=== PATIENT | female | born 1945 | race Caucasian/White ===

== ENCOUNTER → 2021-02-14 10:44 | Outpatient (BNVA) | payer MEDICARE, SELFPAY | PROVIDERS: PCP Family Medicine; Visit Provider Student in an Organized Health Care Education/Training Program | DX: R76.8 Other specified abnormal immunological findings in serum (principal) | CPT/HCPCS: 99212 ==

== ENCOUNTER 2021-05-05 08:51 | Outpatient (REF) | payer MEDICARE, SELFPAY ==
[2021-05-05 09:49] LABS: C Reactive Protein 0.06 mg/dL (< or = 0.50)
[2021-05-05 10:08] LABS: Erythrocyte Sedimentation Rate 4 MM/HR (0-20)
[2021-05-05 10:29] LABS: Syphilis Screen Nonreactive (Nonreactive)
[2021-05-05 11:04] LABS: Glucose Urine UA NEG (NEG); Leukocyte Esterase Urine 1+ (NEG); Nitrite Urine NEG (NEG); Urine Blood NEG (NEG); Urine Ketones NEG (NEG); Urine Protein NEG (NEG-TRACE)
[2021-05-05 11:19] LABS: Appearance Urine CLEAR; Color Urine YELLOW
[2021-05-05 11:57] LABS: Amorphous Sediment Urine TRACE /LPF; RBC Urine 0-2 /HPF (0)
[2021-05-06 08:52] LABS: Lyme Abs Screen <0.90 index
[2021-05-06 14:07] LABS: Anti DNA DS Antibody 2 IU/mL; Antibody to SS-A Antigen <1.0 NEG AI (<1.0 NEG); Antibody to SS-B Antigen <1.0 NEG AI (<1.0 NEG); Cardiolipin IgG Ab <2.0 GPL-U/mL; Cardiolipin IgM Ab <2.0 MPL-U/mL; SM/Ribonucleoprotein Ab <1.0 NEG AI (<1.0 NEG); Smith Protein <1.0 NEG AI (<1.0 NEG)
[2021-05-06 17:23] LABS: Beta-2 Microglobulin, Serum 2.05 mg/L (< OR = 2.51)
[2021-05-08 10:37] LABS: Complement C3 116 mg/dL (83-193)
[2021-05-08 14:42] LABS: PTT (LAC) Screen 36 sec (< OR = 40)
[2021-05-12 13:26] LABS: HLA B27 Negative (Negative)
== END 2021-05-05 08:52 | disposition home or self-care (01) ==
LOC: HO.LAB 08:51
PROVIDERS: PCP Family Medicine; Visit Provider Student in an Organized Health Care Education/Training Program
DX: R76.8 Other specified abnormal immunological findings in serum (principal); H20.9 Unspecified iridocyclitis
CPT/HCPCS: 36415; 81001; 82232; 85597; 85613; 85652; 85730; 86140; 86147; 86160; 86225; 86235; 86617; 86618; 86780; 86812

== ENCOUNTER 2021-05-12 07:37 | Outpatient (REF) | payer MEDICARE, SELFPAY ==
--- NOTE | ~2021-05-12 | XR_ITS ---
EXAMINATION: XR CHEST CLINICAL INFORMATION: Unspecified iridiocytosis. COMPARISON: None TECHNIQUE: Frontal and lateral views of the chest were obtained. FINDINGS: The heart, great vessels, pulmonary vasculature and mediastinum are normal. There is a full inspiration. The lungs show no focal infiltrate, effusion or pneumothorax. There is mild biapical pleural thickening, right greater than left. On the frontal view, there appears to be a hiatus hernia. There is no acute osseous abnormality. XR/XR chest 2V IMPRESSION: No active cardiopulmonary disease.
--- NOTE | ~2021-05-12 | XR_ITS ---
EXAMINATION: XR PELVIS CLINICAL INFORMATION: Iridiocytosis. COMPARISON: None TECHNIQUE: AP view of the pelvis. FINDINGS: Bony alignment and mineralization are normal. The bilateral acetabular joint spaces are well-maintained. There are tiny peripheral osteophytes of the acetabular roofs. The femoral heads appear smooth. There is no fracture or dislocation. The sacroiliac joints are symmetric and unremarkable. There are pelvic phleboliths. There are incompletely characterized degenerative changes of the lower lumbar spine. 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 No fracture or dislocation is seen. The sacroiliac joints appear symmetric.
[2021-05-12 08:48] LABS: MANUAL DIFF FLAG NO
[2021-05-12 08:52] LABS: Basophils Absolute Auto 0.1 X10*3/uL (0.0-0.2); Basophils Percent Auto 1.3 % (0-2); Eosinophils Absolute Auto 0.1 X10*3/uL (0.0-0.4); Eosinophils Percent Auto 2.8 % (0-4); Hematocrit 41.7 % (37-47); Hemoglobin 13.1 g/dl (12.0-16.0); Imm Gran Abs Auto 0.02 X10*3/uL (0.00-0.03); Imm Gran Pct Auto 0.5 % (0.0-0.4); Lymphocytes Absolute Auto 1.8 X10*3/uL (1.2-4.9); Lymphocytes Percent Auto 47.2 % (20-40); Mean Corpuscular HGB Conc 31.4 g/dl (31.0-35.0); Mean Corpuscular Hemoglobin 28.9 pg (27.0-33.0); Mean Corpuscular Volume 91.9 fL (80-98); Mean Platelet Volume 10.6 fL (9.4-12.3); Monocytes Absolute Auto 0.4 X10*3/uL (0.1-1.2); Monocytes Percent Auto 9.3 % (2-11); Neutrophils Absolute Auto 1.5 X10*3/uL (2.0-8.3); Neutrophils Percent Auto 38.9 % (45-73); Platelet Count 196 X10*3/uL (160-400); Red Blood Count 4.54 X10*6/uL (4.20-5.50); Red Cell Distribution Width 12.7 % (11.0-16.0); White Blood Count 3.9 X10*3/uL (4.8-10.8)
[2021-05-12 08:59] LABS: Glucose Urine UA NEG (NEG); Leukocyte Esterase Urine NEG (NEG); Nitrite Urine NEG (NEG); PH 6.5 (5.0-8.0); Specific Gravity - Urine 1.015 (1.005-1.025); Urine Blood NEG (NEG); Urine Ketones NEG (NEG); Urine Protein NEG (NEG-TRACE)
[2021-05-12 09:15] LABS: Appearance Urine CLEAR; Color Urine YELLOW
[2021-05-12 09:25] LABS: Alanine Aminotransferase 15 U/L (0-31); Albumin Level 4.2 g/dL (3.5-5.0); Alkaline Phosphatase 89 U/L (39-117); Anion Gap 11 (12-20); Aspartate Amino Transferase 20 U/L (5-31); Bilirubin Total 0.5 mg/dL (0.0-1.0); Blood Urea Nitrogen 21 mg/dL (9-16); Calcium 9.9 mg/dL (8.4-10.2); Carbon Dioxide 30 mmol/L (22-29); Chloride 105 mmol/L (96-108); Estimated Glomerular Filt Rate > 60; Glucose Random 93 mg/dL (60-115); Potassium 4.3 mmol/L (3.3-5.1); Sodium 142 mmol/L (135-145); Total Protein 6.4 g/dL (6.5-8.0)
[2021-05-12 09:32] LABS: Calcium Phosphate Crystals Ur TRACE /LPF; RBC Urine 0-2 /HPF (0); Squamous Epithelial Cell Urine TRACE /LPF; WBC Urine 0-2 /HPF (0-4)
[2021-05-15 13:51] LABS: Myeloperoxidase Antibody <1.0 AI; Proteinase 3 PR3 Antibodies <1.0 AI
[2021-05-18 06:42] LABS: Angiotensin Converting Enzyme 38 U/L (9-67)
[2021-05-24 15:27] LABS: Kappa, Serum 184 mg/dL (176-443); Kappa/Lambda Ratio, Serum 1.52 (1.29-2.55); Lambda, Serum 121 mg/dL (91-240)
== END 2021-05-12 07:38 | disposition home or self-care (01) ==
LOC: HO.LAB 07:37
PROVIDERS: PCP Family Medicine; Visit Provider Student in an Organized Health Care Education/Training Program
DX: R76.8 Other specified abnormal immunological findings in serum (principal); H20.9 Unspecified iridocyclitis; M25.50 Pain in unspecified joint; Z79.899 Other long term (current) drug therapy
CPT/HCPCS: 36415; 71046; 72170; 80053; 81001; 82164; 83883; 85025; 86021; 99212

== ENCOUNTER → 2021-06-01 10:06 | Outpatient (BNVA) | payer MEDICARE, SELFPAY | PROVIDERS: PCP Family Medicine; Visit Provider Student in an Organized Health Care Education/Training Program | DX: H20.9 Unspecified iridocyclitis (principal); R76.8 Other specified abnormal immunological findings in serum | CPT/HCPCS: 99212 ==

== ENCOUNTER → 2024-07-15 14:50 | Outpatient (RCR) | payer MEDICARE, SELFPAY ==
--- NOTE | 2021-01-06 15:23 | HO.HEMONCTE1 ---
[facility] Telehealth - Telehealth Location of Provider rendering services: Hem/onc office. Location of Patient: Home. Patient Identification confirmed using: Name, : Yes Telehealth Method: Via telephone. Patient verbally consented to treatment: Yes. Patient verbally consented to billing insurance company: Yes Patient informed of any privacy concerns related to visit: Yes Medical Summary - Medical Summary Date of Service: 01/06/21 Chief complaint: Follow-up for:IgG lambda MGUS. Medical Summary: DIAGNOSIS: MGUS: IGG LAMBDA. Interval History Interval history: This is a pleasant 75-year-old lady with whom a tele interview was held. She says her energy level is good. However she has had some other issues. She gets lightheaded sometimes. She has had some GI complaints. She feels full all day. She gets constipated. That alternates with diarrhea. Sometimes he has 2-3 loose stools within an hour and then it stops. The other day she had hard stools. This alternating patent has been there for years. She denies any bleeding now. She has had it in the past. She was told she has hemorrhoids. Last year, she had lost weight. She has regained some of it. She had an extensive evaluation by Dr. Pedersen at [facility]. Her symptoms are consistent with IBS. She denies fever nor chills. No headaches. No chest pain or trouble breathing. She tells me she has been homebound. She is going to be getting the 1st dose of vaccine tomorrow by [facility]. She is in good spirits. Rest of the review of systems is unremarkable. Review of Systems - Constitutional Reports no additional constitutional complaints, Reports malaise - Eyes Reports no additional eye complaints - ENT Reports no additional ear, nose, mouth, and throat complaints - Cardiovascular Reports no additional cardiovascular complaints - Respiratory Reports no additional respiratory complaints - Gastrointestinal Reports no additional gastrointestinal complaints, Reports abdominal pain, Reports bloating, Reports change in bowel habits, Reports cramping, Reports diarrhea - Genitourinary Reports no additional female genitourinary complaints - Musculoskeletal Reports no additional musculoskeletal complaints - Integumentary/Breasts Skin/Breast: Reports no additional skin complaints - Neurologic Reports no additional neurologic complaints - Psychiatric Reports no additional psychiatric complaints - Endocrine Reports no additional endocrine complaints - Hematologic/Lymphatic Reports no additional hematologic/lymphatic complaints - Allergic/Immunologic Reports no additional allergic/immunologic complaints Oncology Screenings - ECOG Performance Status ECOG Performance Status: 0 Home Medications and Allergies Home Medications Medication Instructions Recorded Confirmed Type ascorbic acid (vitamin C) [Vitamin 500 mg PO DAILY 01/06/21 01/06/21 History C] calcium 1,000 mg PO DAILY 01/06/21 01/06/21 History clonazepam 3 tab PO Q OTHER DAY PRN 01/06/21 01/06/21 History duloxetine [Cymbalta] 30 mg PO DAILY 01/06/21 01/06/21 History ergocalciferol (vitamin D2) 200 mcg PO DAILY 01/06/21 01/06/21 History [Vitamin D2] magnesium 200 mg PO DAILY 01/06/21 01/06/21 History multivitamin 1 cap PO DAILY 01/06/21 01/06/21 History polyethylene glycol 3350 [Miralax] 17 g PO DAILY 01/06/21 01/06/21 History vit C,E-Je-wikgd-lutein-zeaxan 1 tab PO BID 01/06/21 01/06/21 History [PreserVision AREDS-2] Allergies Allergy/AdvReac Type Severity Reaction Status Date / Time topiramate [From TOPAMAX] Allergy Unknown YELLOW Unverified 08/04/20 19:49 AURA Exam - Constitutional Present: no acute distress - Routine HEENT Exam Head: Present: normal inspection Eye: Present: normal appearance ENT: Present: mucous membranes moist - Routine Neck Exam Present: full ROM - Routine Respiratory Exam Present: CTAB - Routine Cardiovascular Exam Cardiovascular: Present: RRR, S1, S2 - Routine Abdominal Exam Present: soft, nontender - Routine Rectal Exam Patient deferred: digital exam - Routine Extremities Exam Present: nontender - Routine Back/Spine/Pelvis Exam Back/Spine: Present: full ROM - Routine Skin Exam Present: intact - Routine Neurological Exam Present: alert, oriented X3 - Routine Psychiatric Exam Present: normal affect Progress Note: A/P (1) MGUS (monoclonal gammopathy of unknown significance) Status: Acute Assessment and plan: This is a pleasant 75-year-old lady who underwent a rheumatological workup and has been noted to have MGUS: IgG lambda monoclonal protein. DIFFERENTIAL DIAGNOSIS: 1. MGUS: This is most likely she does not have any elevated IgG level. No B symptoms. 2. Multiple myeloma: There is no anemia, renal dysfunction, hypercalcemia. 3. A lymphoma. 4. Amyloidosis: Possible especially with elevated lambda protein. l proceeded with further evaluation. Repeat SIEP: IgG 862 IgA 97 IgM 84 IMFIXS INTERP IgG lambda monoclonal band present. Check free light chain ratio: FREE KAPPA, SER 11.2 FREE LAMBDA SER 8.5 FREE K/L RATIO 1.32. Checked LDH: 156. l checked a beta 2 microglobulin level to assess prognosis: 1.74. Database: Labs from 06/27/2020: CBC: WBC 5.8, HGB 13.1, HCT 41.1, MCV 94.3, PLT 202. Glu 112, BUN 23, ANIMAL HERDER 0.9, alb 4.2, Ca 9.4. LFTs: 0.370 03/03/2017. Ig. She is clinically stable. IgG level is rock stable. PLAN: I will continue to monitor. Will follow-up IgG level. Will check and organs with CBC kidney function and calcium levels. She will go to [facility] next week. I faxed over the rec. Can check skeletal survey in future. She is not willing to come in to the hospital at this point due to the pandemic. Hopefully after the vaccination. She will return in 6 months for a follow-up visit. 25 minutes was spent coordinating her care including the tele interview, review of labs, review of imaging, and counseling the patient. Thank you, CC: Dr. Minaya. Dr. Ashok Casas. - Time Spent With Patient Total time spent is greater than 50% in coordination of care (as documented) at patient's floor/unit and/or counseling patient: 25 - 35 minutes
--- NOTE | 2021-01-06 15:47 | MHC.HEMONC ---
[facility] to preferred lab draw station. Confirmation recieved.
== END | disposition home or self-care (01) ==
LOC: HO.ONC 01-06 15:05
PROVIDERS: Visit Provider Internal Medicine Medical Oncology
DX: D47.2 Monoclonal gammopathy (principal)
CPT/HCPCS: Q3014